=== PATIENT | female | born 1990 | race Caucasian/White ===

== ENCOUNTER → 2017-04-08 | Outpatient (CLI) | payer OTHER ==
--- NOTE | 2017-04-10 13:45 | SLEEPCENT ---
DATE OF PROCEDURE: 04/08/2017 REQUESTING PROVIDER: Lesli Mayfield NP INTERPRETATION: Nocturnal polysomnography was performed due to concern for obstructive sleep apnea syndrome in this patient with a history of excessive somnolence, observed apneas and nonrestorative sleep. 7 hours and 35 minutes of data were reviewed. There were 410 minutes of sleep identified. Sleep latency was mildly prolonged at 21 minutes. Rapid eye movement (REM) latency was more so prolonged at 161 minutes. Sleep architecture showed fragmentation. There were three REM periods appreciated. Overall sleep efficiency was 91%. Electrocardiogram (EKG) showed a sinus rhythm with rate variability surrounding respiratory events. Average heart rate 76 beats per minute. Rate ranged 60 to 100. Electroencephalogram (EEG) showed normal waveforms for awake and sleep. There were 59 respiratory events identified of 10 seconds in duration or greater for an apnea-hypopnea index of 8.6. The events were primarily obstructive, not exclusive to sleep stage nor body posture. Arousals from respiratory events occurred 9.7 times per hour. There was some limb activity noted with three trains of 30 events. Limb movement arousal index was 6.4. IMPRESSION: 1. Obstructive sleep apnea syndrome (G47.33). Apnea-hypopnea index of 8.6. 2. Mild periodic limb movement disorder (G47.61). Limb movement arousal index 6.4. RECOMMENDATIONS: The patient should be encouraged to return to the sleep disorder center for pressure therapy. In the interim, alcohol and sedative avoidance should be practiced and caution exercised during the operation of motor vehicles. Pending response to the pressure treatment, interventions to reduce the frequency from arousals from limb activity may be necessary.
== END ==
LOC: M SLEEP 19:41
PROVIDERS: ATTEND Nurse Practitioner Adult Health
DX: G47.33 Obstructive sleep apnea (adult) (pediatric) (principal); G47.61 Periodic limb movement disorder

== ENCOUNTER → 2018-09-21 | Outpatient (CLI) | payer OTHER ==
--- NOTE | 2018-09-21 13:40 | REP ---
Chest two views HISTORY: Chest pain Comparison: None The lungs are clear. The heart is normal in size. The pulmonary vasculature is normal in appearance. The bony structure is intact. IMPRESSION: No acute disease. Electronically Signed by Lalito Trejo MD 09/21/2018 01:32 P
[2018-09-21 17:57] LABS: BASO % 0.6 % (0.0-1.0); EOS # 0.6 10^3/uL (0.0-0.50); EOS % 8.5 % (0.0-3.0); HEMATOCRIT 42.9 % (36.0-47.0); HEMOGLOBIN 14.2 g/dl (12.0-15.5); LYMPH # 1.9 10^3/uL (1.5-6.5); LYMPH % 27.2 % (24.0-44.0); MEAN CORPUSCULAR HEMOGLOBIN 31.7 pg (27.0-33.0); MEAN CORPUSCULAR HGB CONC 33.1 g/dl (32.0-36.5); MEAN CORPUSCULAR VOLUME 95.8 fl (80.0-96.0); MONO # 0.4 10^3/uL (0.0-0.8); MONO % 5.1 % (0.0-5.0); NEUTROPHILS # 4.1 10^3/uL (1.8-7.7); NEUTROPHILS % 58.5 % (36.0-66.0); PLATELET COUNT, AUTOMATED 284 10^3/uL (150-450); RED BLOOD COUNT 4.48 10^6/uL (4.00-5.40); WHITE BLOOD COUNT 7.1 10^3/uL (4.0-10.0)
[2018-09-21 18:09] LABS: ALT/SGPT 28 U/L (12-78); BILIRUBIN,TOTAL 0.4 MG/DL (0.2-1.0); BLOOD UREA NITROGEN 13 MG/DL (7-18); CALCIUM LEVEL 8.8 MG/DL (8.5-10.1); CARBON DIOXIDE LEVEL 30 MEQ/L (21-32); CHLORIDE LEVEL 107 MEQ/L (98-107); CHOLESTEROL LEVEL 129 MG/DL (<200); CHOLESTEROL RISK RATIO 3.486 (<5); CREATININE FOR GFR 0.77 MG/DL (0.55-1.30); FREE T4 1.19 NG/DL (0.76-1.46); GLOMERULAR FILTRATION RATE > 60.0 (>60); GLUCOSE, FASTING 97 MG/DL (70-100); HDL CHOLESTEROL 37 MG/DL (>40); LDL CHOLESTEROL 79 MG/DL (<100); NON-HDL-C 92 MG/DL; POTASSIUM SERUM 4.8 MEQ/L (3.5-5.1); SODIUM LEVEL 143 MEQ/L (136-145); TOTAL PROTEIN 7.6 GM/DL (6.4-8.2); TRIGLYCERIDES LEVEL 67 MG/DL (<150)
== END ==
LOC: M SMT 13:01
PROVIDERS: ATTEND Pediatrics
DX: R42 Dizziness and giddiness (principal); R07.9 Chest pain, unspecified

== ENCOUNTER → 2019-02-07 | Outpatient (REF) | payer OTHER | LOC: M LAB REF 13:24 | PROVIDERS: ATTEND Physician Assistant | DX: R35.0 Frequency of micturition (principal) ==